=== PATIENT | male | born 1955 | race Caucasian/White ===

== ENCOUNTER → 2016-05-06 | Outpatient (CLI) | payer OTHER | LOC: COL.RAD 14:14 | DX: S09.8XXA Other specified injuries of head, initial encounter (principal); X58.XXXA Exposure to other specified factors, initial encounter; M47.892 Other spondylosis, cervical region ==

== ENCOUNTER 2016-09-20 21:07 | Emergency (ER) | payer OTHER ==
[~2016-09-20] VITALS: Ht 182.9 cm; Wt 79.5 kg
[2016-09-20 21:08] VITALS: TEMP 98.3
[2016-09-20 21:51] LABS: BASO % 0.5 % (0.0-2.0); EOS # 0.3 (0.0-0.7); EOS % 4.3 % (0-4.0); GRAN # 2.8 (1.4-6.5); GRAN % 44.5 % (42.2-75.2); HEMATOCRIT 49.3 % (42.0-52.0); LYMPH # 2.6 (1.2-3.4); LYMPH % 41.9 % (20.0-51.0); MEAN CELL VOLUME 85 fl (80.0-100.0); MEAN CORPUSCULAR HEMOGLOBIN 29 pg (27.0-31.0); MEAN CORPUSCULAR HGB CONC 35 g/dl (33.0-37.0); MEAN PLATELET VOLUME 10.4 fl (7.4-10.4); MONO # 0.5 (0.1-0.6); MONO % 8.5 % (1.7-9.3); PLATELET COUNT 247 K/mm3 (130-400); REDCELL DISTRIBUTION WIDTH-CV 12.4 % (11.5-14.5); WHITE BLOOD COUNT 6.2 K/mm3 (4.8-10.8)
[2016-09-20 22:11] LABS: CALCIUM 9.6 mg/dL (8.4-10.2)
[2016-09-20 22:48] LABS: INR 0.9 (0.8-3.0); PROTHROMBIN TIME 10.3 SECONDS (9.7-12.8)
[2016-09-21 00:40] LABS: BASO % 0.2 % (0.0-2.0); EOS # 0.1 (0.0-0.7); EOS % 0.4 % (0-4.0); GRAN # 17.5 (1.4-6.5); GRAN % 88.4 % (42.2-75.2); HEMATOCRIT 48.6 % (42.0-52.0); HEMOGLOBIN 16.9 g/dl (13.5-18.0); LYMPH # 0.6 (1.2-3.4); LYMPH % 3.1 % (20.0-51.0); MEAN CELL VOLUME 85 fl (80.0-100.0); MEAN CORPUSCULAR HEMOGLOBIN 30 pg (27.0-31.0); MEAN CORPUSCULAR HGB CONC 35 g/dl (33.0-37.0); MEAN PLATELET VOLUME 9.7 fl (7.4-10.4); MONO # 1.5 (0.1-0.6); MONO % 7.4 % (1.7-9.3); PLATELET COUNT 218 K/mm3 (130-400); RED BLOOD COUNT 5.72 M/mm3 (4.20-5.60); REDCELL DISTRIBUTION WIDTH-CV 12.4 % (11.5-14.5); WHITE BLOOD COUNT 19.8 K/mm3 (4.8-10.8)
[2016-09-21 00:55] LABS: CALCIUM 8.6 mg/dL (8.4-10.2); CREATININE, serum 0.88 mg/dL (0.66-1.25); POTASSIUM 4.1 mmol/L (3.4-5.0)
[2016-09-21 00:57] LABS: INR 1.1 (0.8-3.0); PROTHROMBIN TIME 11.8 SECONDS (9.7-12.8)
[2016-09-21 01:50] VITALS: BP 139/89; PULSE 62
== END 2016-09-21 01:53 | disposition short-term general hospital (02) ==
LOC: COL.ER 21:07
PROVIDERS: Emergency Medicine
DX: T63.011A Toxic effect of rattlesnake venom, accidental (unintentional), initial encounter (principal); S61.052A Open bite of left thumb without damage to nail, initial encounter; S61.254A Open bite of right ring finger without damage to nail, initial encounter; S61.252A Open bite of right middle finger without damage to nail, initial encounter; Y92.009 Unspecified place in unspecified non-institutional (private) residence as the place of occurrence of the external cause; Z23 Encounter for immunization; Z29.12 Encounter for prophylactic antivenin
CPT/HCPCS: J0840; J1170; J2405; J7050

== ENCOUNTER 2020-09-28 15:25 | Observation (INO) | payer OTHER ==
[~2020-09-28] VITALS: Ht 182.9 cm; Wt 82.2 kg
[2020-09-28 15:58] LABS: BASO % 0.5 % (0.0-2.0); EOS # 0.5 (0.0-0.7); GRAN % 53.4 % (42.2-75.2); HEMATOCRIT 48.3 % (42.0-52.0); HEMOGLOBIN 16.4 g/dl (13.5-18.0); LYMPH # 2.3 (1.2-3.4); LYMPH % 30.2 % (20.0-51.0); MEAN CELL VOLUME 86 fl (80.0-100.0); MEAN CORPUSCULAR HEMOGLOBIN 29 pg (27.0-31.0); MEAN CORPUSCULAR HGB CONC 34 g/dl (33.0-37.0); MEAN PLATELET VOLUME 9.9 fl (7.4-10.4); MONO # 0.7 (0.1-0.6); MONO % 9.8 % (1.7-9.3); PLATELET COUNT 241 K/mm3 (130-400); RED BLOOD COUNT 5.65 M/mm3 (4.20-5.60); REDCELL DISTRIBUTION WIDTH-CV 12.9 % (11.5-14.5)
[2020-09-28 16:05] LABS: ALBUMIN 4.2 gm/dL (3.5-5.0); BILIRUBIN,TOTAL 1.8 mg/dL (0.0-1.0); CALCIUM 9.4 mg/dL (8.4-10.2); CREATININE, serum 0.97 (0.66-1.25); POTASSIUM 4.3 mmol/L (3.4-5.0); TOTAL PROTEIN 7.6 gm/dL (6.4-8.2)
[2020-09-28] MEDS ORDERED: ASPIRIN 81M81 MG/TA2 PO (16:35)
[2020-09-28 16:42] VITALS: BP 138/76; PULSE 54; TEMP 98.4
--- NOTE | 2020-09-28 18:23 | NUR ---
PT RECIEVED DIRECT ADMIT. PT AWAKE AND ALERT. NO S/S OF DISTRESS NOTED. IV ACCESS INSERTED. TELE MONITOR PLACED. ADMISSION COMPLETED. PT DENIES PAIN. COMFORT MEASURES IN PLACE. PT ORIENTD TO ROOM. CALL LGHT IN REACH. BED IN LOW POSITION. WILL CONTINUE TO MONITOR.
[2020-09-28 20:45] VITALS: BP 143/75; PULSE 46; TEMP 98.3
--- NOTE | 2020-09-28 23:36 | NUR ---
Patient assessed around 2044. Alert and oriented x 4, and able to make needs known. Denies having pain and discomfort at this time. Peripheral INT to left forearm. Denies SOB and dyspnea. LS CTA. Respirations even and unlabored. HRR. Telemetry in place. Capillary refill less than 3 seconds. Non-tenting skin turgor. BSAx4. Abdomen soft and non-tender. No edema. Reminded that he will be NPO after midnight, and voiced understandig. Voices no questions, needs, or concerns at this time. Resting in recliner with call light within reach.
[2020-09-29] VITALS (298 sets, daily range): BP systolic 106–160; BP diastolic 55–110; PULSE 43–86; TEMP 97.6–98.3; O2SAT 89–100
--- NOTE | 2020-09-29 06:29 | NUR ---
Patient has been resting in bed with call light within reach. Has denied having pain and discomfort. Has been NPO since midnight for heart cath today. Voices no questions, needs, or concerns at this time.
[2020-09-29 06:59] LABS: PROTHROMBIN TIME 11.5 SECONDS (9.7-12.8)
[2020-09-29 07:02] LABS: PARTIAL THROMBOPLASTIN TIME 34.3 SECONDS (26.0-37.0)
[2020-09-29 07:06] LABS: HEMATOCRIT 48.6 % (42.0-52.0); HEMOGLOBIN 16.3 g/dl (13.5-18.0); MEAN CELL VOLUME 86 fl (80.0-100.0); MEAN CORPUSCULAR HEMOGLOBIN 29 pg (27.0-31.0); MEAN CORPUSCULAR HGB CONC 34 g/dl (33.0-37.0); MEAN PLATELET VOLUME 10.3 fl (7.4-10.4); PLATELET COUNT 220 K/mm3 (130-400); RED BLOOD COUNT 5.66 M/mm3 (4.20-5.60)
[2020-09-29 07:13] LABS: CREATININE, serum 0.85 (0.66-1.25); POTASSIUM 4.1 mmol/L (3.4-5.0)
--- NOTE | 2020-09-29 14:02 | NUR ---
Power Manager met with the patient to complete intake. The patient lives independently in [facility] with his , Lorna. The patient denies DME use. The patient's PCP is Dr. Lowe and patient receives medications from [facility] with no difficulties. The patient does not have advanced directives but was interested in DPOA-HC form. Form provided. The patient discharge home with Lorna and has no concerns about doing so. *Discharge disposition: Home with spouse, Lorna.*
--- NOTE | 2020-09-29 19:26 | NUR ---
Report given to CONCEPCION Chavez.
--- NOTE | 2020-09-29 20:00 | NUR ---
PATIENT MOVES ABOUT ROOM INDEPENDENTLY/ DENIES DISCOMFORT/ VERY POLITE
[2020-09-30] VITALS (307 sets, daily range): BP systolic 114–116; BP diastolic 54–72; PULSE 47–52; TEMP 97.7; O2SAT 73–100
--- NOTE | 2020-09-30 04:10 | NUR ---
PATIENT IS SLEEPING WELL, TR BAND REMOVE NO REDNESS OR EDEMA FOUND BANDAID APPLIED
[2020-09-30] MEDS ORDERED: BRILINTA90 MG PO (06:16)
[2020-09-30] MEDS ORDERED: LIPITOR 40MG TA40 MG PO (06:17)
[2020-09-30] MEDS ORDERED: [UNRECOGNIZED DRUG - OTHER] SL (06:17)
[2020-09-30] MEDS ORDERED: ASPIRIN 81M81 MG/TA2 PO (06:18)
[2020-09-30] MEDS ORDERED: BD POSIFLUSH SF10 ML IV ×2 (06:19→06:20)
[2020-09-30] MEDS ORDERED: TYLENOL 325MG325 MG PO (06:19)
[2020-09-30 06:33] LABS: CHOLESTEROL RISK RATIO 4.2
--- NOTE | 2020-09-30 07:10 | NUR ---
PATIENT DISCHARGE WITH WRITTEN AND VERBAL INSTRUCTIONS FROM DR THOMAS HIMSELF PRESENT. PATIENT SIGNS DISSMISSAL WITH ACKNOWLEDGE OF UNDERSTANDING INSTRUCTIONS.
--- NOTE | 2020-09-30 07:15 | NUR ---
Prescription for Metoprolol Succinate called to [facility] pharmacy per Dr. George's request. 12.5mg PO daily, #30 with 3 RF.
== END 2020-09-30 07:10 | disposition home or self-care (01) ==
LOC: MEDICAL 15:29 → ICU 09-29 17:47
PROVIDERS: Nurse Practitioner; ADMIT Internal Medicine Interventional Cardiology
DX: I25.10 Atherosclerotic heart disease of native coronary artery without angina pectoris (principal); I47.1 Supraventricular tachycardia; R94.39 Abnormal result of other cardiovascular function study; R07.89 Other chest pain; E78.5 Hyperlipidemia, unspecified; R00.1 Bradycardia, unspecified; Z20.822 Contact with and (suspected) exposure to COVID-19; Z82.49 Family history of ischemic heart disease and other diseases of the circulatory system
CPT/HCPCS: C1725; C1769; C1874; C1887; C9600; G0378; G0379; J0583; J1644; J2250; J3010